=== PATIENT | female | born 1970 | race African-American/Black ===

== ENCOUNTER → 2017-06-23 | Outpatient (CLI) | payer MEDICAID, MEDICARE ==
[~2017-06-23] MED LIST: APIX5TAB PO; COUMADIN; LOSA50TA20 PO; TAMOXIFEN; VICODIN
== END | disposition home or self-care (01) ==
LOC: MAMMO 13:40
PROVIDERS: ATTEND Internal Medicine Hematology & Oncology
DX: C50.412 Malignant neoplasm of upper-outer quadrant of left female breast (principal); R92.8 Other abnormal and inconclusive findings on diagnostic imaging of breast
CPT/HCPCS: G0206

== ENCOUNTER → 2017-06-24 | Outpatient (CLI) | payer MEDICAID ==
[~2017-06-24] MED LIST changes: -APIX5TAB PO; -LOSA50TA20 PO
[2017-06-24 11:35] LABS: INR 1.1; PARTIAL THROMBOPLASTIN TIME 24.4 sec (23.4-31.0); PROTHROMBIN TIME 11.3 sec (9.4-11.6)
== END | disposition home or self-care (01) ==
LOC: LAB 11:02
PROVIDERS: ATTEND Internal Medicine Hematology & Oncology
DX: C50.412 Malignant neoplasm of upper-outer quadrant of left female breast (principal); R79.1 Abnormal coagulation profile
CPT/HCPCS: 36415; 85610; 85730; 86300

== ENCOUNTER 2017-07-20 08:22 | Emergency (ER) | payer MEDICAID, MEDICARE ==
[~2017-07-20] VITALS: Ht 162.6 cm; Wt 73.0 kg
[2017-07-20] MEDS ORDERED: APIX5TAB PO (08:48)
[2017-07-20] MEDS ORDERED: LOSA50TA20 PO (08:49)
[2017-07-20] MEDS ORDERED: HYDROCODONE/ACETAMINOPHEN 5/325MG TABLET PO NR (12:07)
[2017-07-20 14:02] VITALS: BP 120/75
== END 2017-07-20 14:33 | disposition home or self-care (01) ==
LOC: ER 10:19
DX: M77.32 Calcaneal spur, left foot (principal); M79.672 Pain in left foot; F17.200 Nicotine dependence, unspecified, uncomplicated; F12.10 Cannabis abuse, uncomplicated; Z79.01 Long term (current) use of anticoagulants
CPT/HCPCS: 73630; 93971; 99284

== ENCOUNTER 2019-04-21 12:01 | Emergency (ER) | payer MEDICAID, MEDICARE ==
[~2019-04-21] VITALS: Ht 162.6 cm; Wt 80.0 kg
[~2019-04-21 12:01] MED LIST changes: +APIX5TAB PO; -COUMADIN; +LOSA50TA41 PO
[2019-04-21] MEDS ORDERED: KETOROLAC 15MG/ML VIAL IM ONE (14:00)
[2019-04-21 14:57] LABS: UCG SCREEN NEGATIVE
[2019-04-21 15:00] LABS: CLARITY URINE CLOUDY (CLEAR); COLOR URINE YELLOW (YELLOW); KETONES URINE NEGATIVE (NEGATIVE); LEUKOCYTE ESTERASE URINE 1+ (NEGATIVE); NITRITE URINE NEGATIVE (NEGATIVE); OCCULT BLOOD URINE NEGATIVE (NEGATIVE); PH URINE >=9.0 (4.5-8.0); PROTEIN URINE 1+ (NEGATIVE); SPECIFIC GRAVITY URINE 1.022 (1.005-1.030); UROBILINOGEN URINE 0.2 E.U./dL (0.2-1.0)
[2019-04-21 15:30] VITALS: BP 149/98
[2019-04-21] MEDS ORDERED: HYDROCODONE/ACETAMINOPHEN 5/325MG TABLET PO ONE (15:30)
== END 2019-04-21 15:30 | disposition home or self-care (01) ==
LOC: ER 12:01
DX: S39.012A Strain of muscle, fascia and tendon of lower back, initial encounter (principal); N39.0 Urinary tract infection, site not specified; F12.10 Cannabis abuse, uncomplicated; Z85.3 Personal history of malignant neoplasm of breast; Z90.11 Acquired absence of right breast and nipple; Z90.49 Acquired absence of other specified parts of digestive tract; Z86.718 Personal history of other venous thrombosis and embolism; Z79.01 Long term (current) use of anticoagulants; X58.XXXA Exposure to other specified factors, initial encounter; Y93.89 Activity, other specified; Y92.018 Other place in single-family (private) house as the place of occurrence of the external cause
CPT/HCPCS: 72100; 81003; 81025; 96372; 99284; J1885